=== PATIENT | female | born 1970 | race Caucasian/White ===

== ENCOUNTER 2023-02-16 08:43 | Outpatient (REF) | payer OTHER, SELFPAY ==
--- NOTE | ~2023-02-16 | XR_ITS ---
EXAMINATION: XR PELVIS CLINICAL INFORMATION: Hips pain COMPARISON: None available. TECHNIQUE: AP view of the pelvis. FINDINGS: No fracture. Hip joint spaces are maintained. Alignment is anatomic. There is minimal spurring at the acetabulum and femoral head on the left. Sacroiliac joints and pubic symphysis are normal. No abnormal soft tissue calcifications. XR/XR pelvis 1-2V IMPRESSION: Minor changes of osteoarthritis in the left hip joint
== END 2023-02-16 08:44 | disposition home or self-care (01) ==
LOC: HO.HOSX 08:43
PROVIDERS: Visit Provider Orthopaedic Surgery
DX: M16.12 Unilateral primary osteoarthritis, left hip (principal)
CPT/HCPCS: 72170; 99202

== ENCOUNTER 2023-02-16 09:50 | Outpatient (AMB) | payer OTHER, SELFPAY ==
[2023-02-16 10:09] VITALS: BMI 29.7
--- NOTE | 2023-02-16 10:09 | MHC.OFFVIS ---
Intake Vital Signs 02/16/23 10:09 Height 5 ft 6 in Weight 184 lb BMI 29.7 Handedness Right Intake Visit Reasons: New Pt - left hip pain - No XR Intake Note: Sejal is a 52 year old female who presents today as a new patient with complaints of left hip pain. Patient reports that her left hip has been painful for many years now. She did see an orthopedic surgeon many years ago ho gurmeet that she had a bone spur. She was prescribed PT and had no changes in symptoms. She has pain with external rotation and prolonged sitting. Her pain is felt from the buttock and wraps aroud the outer aspect of the hip to the groin Allergies No Known Allergies Allergy (Verified 02/16/23 10:12) HPI New Pt - left hip pain - No XR HPI Details Sejal is a 52 year old woman who presents with complaints of left hip pain. She complains of pain localized to her groin. She says this has been present for several years and is worse with prolonged sitting activities or climbing in/out of a car. She says her pain worsened in ~2019, and this has affected her leisure activities and her work ability as she cannot sit for too long, and she feels she needs to drag her leg at times when walking. She is frustrated that she is unable to ride her horses due to her pain. Straddling a horse and opening her hips causes her the most pain. She says she can walk comfortably for short periods, ~20 minutes, but she is unable to walk for an hour without developing pain in her groin and her lower back. She walks with a slight limp. She was told she had a bone spur at [facility], and has completed PT in the past, but says this did not improve her pain. She does feel that her PT improved her motion however. 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 She is not working often due to her pain and finds she needs to use Lidocaine patches and NSAIDs for some relief. She is unable to take NSAIDs consistently due to gastric ulcers. [facility] Social History (Updated 02/16/23 @ 10:13 by Antonella Soriano CMA) Patient Tobacco Use Status: Never used Tobacco Current occupational status: employed Current occupation: Stenographer Review of Systems Const All systems reviewed & are unremarkable except as noted in HPI and below Physical Exam Vital Signs: BMI result Body Mass Index 29.7 Const General: no acute distress, alert and awake Orientation/consciousness: patient oriented x3 HEENT Head: Yes normocephalic and Yes atraumatic Eyes EOM: EOMs intact bilaterally Resp Effort & Inspection: normal respiratory effort and able to speak in complete sentences Cardio Jugular venous distension: no JVD Skin General skin exam: turgor normal Rashes: no rashes Neuro General: patient oriented x3 Extrem Other: Left Hip: Left hip with + impingement and + Stinchfield Pain with JUAN CARLOS that localizes to groin Psych Appearance: grossly normal Affect: normal affect Attitude: cooperative Results Reviewed Results Reviewed: I personally reviewed relevant radiographs. Moderate left hip OA & mild right hip OA Assessment & Plan Assessment & Plan (1) Osteoarthritis of left hip: Code(s): M16.12 - Unilateral primary osteoarthritis, left hip Plan: This is a 52 year old woman with moderate-severe left hip OA. She has pain with prolonged sitting, climbing into a car, and riding horses. This affects her ability to work. She feels limited in her ADLs, that her QOL is diminished, and she is frustrated by this. Her pain is localized primarily to the groin. She has completed PT in the past, with limited relief, and takes NSAIDs sparingly due to gastric ulcers, though these do give her some relief. I discussed her diagnosis and treatment options. I recommend a left JANNIE. I discussed the risks, benefits, and alternatives including, but not limited to, the risk of pain, infection, stiffness, need for further surgery as well as potential medical complications such as blood clots, pulmonary embolism and cardiac complications. I discussed the recovery timeline and process as well as the importance of PT. Sejal is a good candidate for this surgery, and she wishes to proceed with this decision. She will speak with Shonda to schedule this procedure. Plan Scribed for Favian Monzon MD by Sylvester Najera, medical accounts receivable specialist, on 02/16/23 at 10:30 AM, EST. Orders: Orders XR pelvis 1-2V 02/16/23 M25.559 - Pain in unspecified hip Coding Level of Care Code New Pt Level 4 (80310) Diagnoses Osteoarthritis of left hip M16.12
== END 2023-02-16 10:57 | disposition home or self-care (01) ==
PROVIDERS: PCP Internal Medicine; Visit Provider Orthopaedic Surgery
DX: M16.12 Unilateral primary osteoarthritis, left hip (principal)
CPT/HCPCS: 99204

== ENCOUNTER 2023-03-23 10:10 | Outpatient (AMB) | payer OTHER, SELFPAY ==
--- NOTE | 2023-03-23 10:12 | A.OFFVIS_ITS ---
Intake Intake Visit Reasons: Preop-LT JANNIE 03/29/23 NE Intake Note: Sejal is a 52 year old female who presents today for a pre op appointment for left JANNIE 03/29/23 NE. Allergies No Known Allergies Allergy (Verified 03/23/23 10:12) HPI Preop-LT JANNIE 03/29/23 NE HPI Details 52-year-old female who presents in the [facility] today for her preoperative history and physical exam prior to a left total hip arthroplasty to be performed on 03/29/[address] Monzon. She expresses concerns for nausea, vomiting, and stomach ulcers that are caused by medication. She confirms having a raised toilet seat. She still needs to pear picker the walker. Patient tested negative for MRSA. Patient tested positive for S. aureus. Patient has no known allergy history. Patient is currently taking, as follows: -Omeprazole 20 mg PO Daily -Vitamin D Patient has a medical history, as follows: -Anxiety -Irritable bowel syndrome -Postoperative nausea and vomiting -Stomach ulcers Patient has a surgical history, as follows, without complications: -History of colonoscopy -History of dilation and curettage Patient has a social history, as follows: -Patient works as a Stenographer. [facility] Medical History (Updated 03/23/23 @ 10:19 by Samanta Hernandez) Anxiety Irritable bowel syndrome Osteoarthritis PONV (postoperative nausea and vomiting) Surgical History (Updated 03/22/23 @ 11:51 by Flores Palacios RN) Hx of colonoscopy Hx of dilation and curettage Social History Household Members: Spouse Housing: House Are you a primary inspector health care facilities to a significant other at home: No Do you presently have visiting nurse or other home services: No Patient Tobacco Use Status: Former Tobacco user Quit Date: 25 years ago Tobacco use type: Cigarette Use of substances other than those prescribed or required for medical reasons: No Current occupational status: employed Current occupation: Stenographer Review of Systems Const All systems reviewed & are unremarkable except as noted in HPI and below Physical Exam Const General: no acute distress, alert and awake Orientation/consciousness: patient oriented x3 HEENT Head: Yes normocephalic and Yes atraumatic Eyes General: appearance normal, both eyes and all related structures EOM: EOMs intact bilaterally Neck Neck: Yes normal visual inspection and Yes no lymphadenopathy Resp Effort & Inspection: normal respiratory effort and able to speak in complete sentences Cardio Jugular venous distension: no JVD Rate: regular rate Peripheral pulses: Peripheral pulses 2+ throughout GI Inspection: Yes normal to inspection Palpation (GI): Soft to palpation Skin General skin exam: turgor normal Rashes: no rashes Neuro General: patient oriented x3 Extrem Other: Left Hip: Skin is clean, dry, and intact. Left hip with + impingement and + Stinchfield Pain with JUAN CARLOS that localizes to groin Psych Appearance: grossly normal Mental Status: mental status grossly normal Affect: normal affect Attitude: cooperative Assessment & Plan Assessment & Plan (1) Osteoarthritis of left hip: Code(s): M16.12 - Unilateral primary osteoarthritis, left hip Qualifiers: Osteoarthritis type: unspecified Qualified Code(s): M16.12 - Unilateral primary osteoarthritis, left hip (2) Gastric ulcer due to nonsteroidal antiinflammatory drug (NSAID) therapy: Code(s): K25.9 - Gastric ulcer, unspecified as acute or chronic, without hemorrhage or perforation; T39.395A - Adverse effect of other nonsteroidal anti-inflammatory drugs [NSAID], initial encounter Plan: Shaun [phone] Plan Ms. Garcia is a 52-year-old female who presents in the office today for her preoperative history and physical exam prior to a left total hip arthroplasty to be performed on 03/29/[address] Monzon. She expresses concerns for nausea, vomiting, and stomach ulcers that are caused by medication. She confirms having a raised toilet seat. She still needs to pear picker the walker. Patient tested negative for MRSA. Patient tested positive for S. aureus. Patient has no known allergy history. Patient is currently taking, as follows: -Omeprazole 20 mg PO Daily -Vitamin D Patient has a medical history, as follows: -Anxiety -Irritable bowel syndrome -Postoperative nausea and vomiting -Stomach ulcers Patient has a surgical history, as follows, without complications: -History of colonoscopy -History of dilation and curettage Patient has a social history, as follows: -Patient works as a Stenographer. I discussed in detail the procedure and what to expect pre and post operatively. We discussed the risks, benefits and alternatives to the surgery as well as the rehabilitation course. The risks; which include, but are not limited to infection, bleeding, nerve injury, ongoing pain, swelling, and stiffness, perioperative risk of injury to bones and soft tissues, and blood clots. I have answered all questions and with their understanding they have consented to move forward with a left total knee arthroplasty to be performed on 03/29/[address] Favian Monzon. Follow up will be at the post operative appointment on 04/20/2022 at 2:15 pm, or sooner if needed. Please call Shaun, her , at [phone] after surgery. Patient has postop nausea and vomiting and a history of gastric ulcers due to NSAID use. Patient Instructions: Scribed for Leonila Segovia PA-C by Samanta Hernandez medical billing coordinator, on 03/23/2023 at 10:12 am, EST. Coding Level of Care Code Global (55911) Diagnoses Osteoarthritis of left hip, unspecified osteoarthritis type M16.12 Osteoarthritis type: unspecified Gastric ulcer due to nonsteroidal antiinflammatory drug (NSAID) therapy K25.9; T39.395A
== END 2023-03-23 10:38 | disposition home or self-care (01) ==
PROVIDERS: PCP Internal Medicine; Visit Provider Physician Assistant
DX: M16.12 Unilateral primary osteoarthritis, left hip (principal); K25.9 Gastric ulcer, unspecified as acute or chronic, without hemorrhage or perforation; T39.395A Adverse effect of other nonsteroidal anti-inflammatory drugs [NSAID], initial encounter
CPT/HCPCS: 99024

== ENCOUNTER → 2023-03-23 10:10 | Outpatient (BNVA) | payer OTHER, SELFPAY | PROVIDERS: PCP Internal Medicine; Visit Provider Physician Assistant | DX: M16.12 Unilateral primary osteoarthritis, left hip (principal); K25.9 Gastric ulcer, unspecified as acute or chronic, without hemorrhage or perforation; T39.395A Adverse effect of other nonsteroidal anti-inflammatory drugs [NSAID], initial encounter | CPT/HCPCS: 99212 ==

== ENCOUNTER 2023-03-28 06:07 | Inpatient (IN) | payer OTHER, SELFPAY ==
[2023-03-22 11:53] VITALS: BP 130/81; PULSE 55; RESP 16; O2SAT 97; BMI 30.5
--- NOTE | 2023-03-22 12:12 | P.CONAN_ITS ---
Documented by User: Camelia Baires NP 03/27/23 08:38 HPI - Anesthesia Eval Consult details Narrative: 52yo F for Left Hip Total Replacement Medically optimized per PCP No recent illness No CP/SOB with walking and strength exercise Otherwise healthy PONV PMFSH Active Problems Active Problems: All Active Problems (Updated 03/22/23 @ 11:51 by Flores Palacios RN) Osteoarthritis of left hip (Acute) Past Medical History Medical History Anxiety Irritable bowel syndrome Osteoarthritis PONV (postoperative nausea and vomiting) Family History Family history of problems with anesthesia: No Surgical History Surgical History Hx of colonoscopy Hx of dilation and curettage History of Problems with Anesthesia: Yes (PONV) Social History Social History Household Members: Spouse Housing: House Are you a primary wound care center consultant to a significant other at home: No Do you presently have visiting nurse or other home services: No Patient Tobacco Use Status: Former Tobacco user Quit Date: 25 years ago Tobacco use type: Cigarette Use of substances other than those prescribed or required for medical reasons: No Have you been hit, kicked, punched, or otherwise hurt by someone within the past year? If so, by whom?: No Are you DNR?: No Advance Directives: No Advance Directives Information Provided: Yes Advance Directives on File: No Recently lost weight without trying: No Nutrition Risks: No Nutritional Risk Patient : No FDLMP: 2017 Poor oral hygiene: No Current occupational status: employed Current occupation: [employer] Allergies Allergy/AdvReac Type Severity Reaction Status Date / Time No Known Allergies Allergy Verified 03/28/23 06:18 Home Medications Medication Instructions Recorded Confirmed Last Taken Type omeprazole 20 mg capsule,delayed 20 mg PO DAILY 03/22/23 03/22/23 03/28/23 History release Exam Height,Weight and Vital Signs: Height 5 ft 6 in Weight 85.6 kg Last Vital Signs Pulse 55 03/22/23 11:53 Resp 16 03/22/23 11:53 BP 130/81 03/22/23 11:53 Pulse Ox 97 03/22/23 11:53 O2 Del Method Room Air 03/22/23 11:53 Airway Mallampati Class: II TM Dist: >3cm Neck ROM: Full Loose/Missing/Broken Teeth: No (1 x crown) Heart: RRR Lungs: CTAB Assessment and Plan Assessment Anesthesia Assessment: Anesthesia Plan Discussed and PAT Visit Final Anesthetic Review Family History of Problems with Anesthesia: No History of Problems with Anesthesia: Yes (PONV) Documented by User: Nani Allan MD 03/28/23 07:26 [facility] Past Medical History Medical History Anxiety Irritable bowel syndrome Osteoarthritis PONV (postoperative nausea and vomiting) Surgical History Surgical History Hx of colonoscopy Hx of dilation and curettage Social History Social History Household Members: Spouse Housing: House Are you a primary wound care center consultant to a significant other at home: No Do you presently have visiting nurse or other home services: No Patient Tobacco Use Status: Former Tobacco user Quit Date: 25 years ago Tobacco use type: Cigarette Use of substances other than those prescribed or required for medical reasons: No Have you been hit, kicked, punched, or otherwise hurt by someone within the past year? If so, by whom?: No Are you DNR?: No Advance Directives: No Advance Directives Information Provided: Yes Advance Directives on File: No Recently lost weight without trying: No Nutrition Risks: No Nutritional Risk Patient : No FDLMP: 2017 Poor oral hygiene: No Current occupational status: employed Current occupation: Stenographer Meds Allergies Allergy/AdvReac Type Severity Reaction Status Date / Time No Known Allergies Allergy Verified 03/28/23 06:18 Home Medications Medication Instructions Recorded Confirmed Last Taken Type omeprazole 20 mg capsule,delayed 20 mg PO DAILY 03/22/23 03/22/23 03/28/23 History release Assessment and Plan Assessment Anesthesia Assessment: Chart Reviewed Final Anesthetic Review NPO: Yes ASA Class: II Final Preanesthetic Review: No Changes in Pt Med Stat, Meds/Allgs Chart Reviewed, Consent Obtained/Reviewed and Anes Risks/Benef Reviewed Patient Risk: Low Procedure Risk: Intermediate Anesthetic Plan Anesthetic Plan: GA Disposition: Standard PACU
[2023-03-22 14:30] LABS: MRSA Nasal PCR NEGATIVE (Negative); SA Nasal PCR POSITIVE (Negative)
[2023-03-28] VITALS (14 sets, daily range): BP systolic 99–139; BP diastolic 47–80; PULSE 48–68; RESP 10–17; TEMP 36.1–36.8; O2SAT 96–100; BMI 30.1
--- NOTE | ~2023-03-28 | XR_ITS ---
EXAMINATION: XR PELVIS CLINICAL INFORMATION: Left total hip arthroplasty COMPARISON: Pelvis 02/16/2023 TECHNIQUE: 3 AP supine view of the pelvis. FINDINGS: No fracture. There is mild narrowing of the right hip joint. Interval left total hip arthroplasty. There is no evidence of periprosthetic lucency to suggest loosening or infection. Hardware is intact. Sacroiliac joints and pubic symphysis are normal. No abnormal soft tissue calcifications. XR/XR pelvis 1-2V IMPRESSION: Satisfactory appearance of left total hip arthroplasty.
[2023-03-28] MEDS: Scopolamine 1.5 MG PATCH.TD.3 TRANSDERMA (06:37)
[2023-03-28] MEDS: Lactated Ringers 1,000 ML 100 ML IVCONT ×3 (06:55→23:18)
[2023-03-28 07:08] LABS: Hemoglobin 13.4 g/dl (12.0-16.0)
[2023-03-28 07:21] LABS: Anion Gap 12 (12-20); Blood Urea Nitrogen 15 mg/dL (9-16); Calcium 9.2 mg/dL (8.4-10.2); Carbon Dioxide 25 mmol/L (22-29); Chloride 109 mmol/L (96-108); Creatinine Clr Calc Pharmacy 90.3; Estimated Glomerular Filt Rate > 60; Glucose Fasting 98 mg/dL (60-99); Potassium 3.7 mmol/L (3.3-5.1); Sodium 142 mmol/L (135-145)
--- NOTE | 2023-03-28 07:30 | MHC.SHP ---
Pre-Procedural Eval Section A Date of Service: 03/28/23 The patient is an INPATIENT: No Changes since office visit: No Cold of Flu in the past 2 weeks, No New Medical Problems, No Changes in Medication and No Patient answered all questions The History & Physical has been completed within 30 days and I have reviewed it.: Yes Section B Chief Complaint: LTHA Allergies: Allergies Allergy/AdvReac Type Severity Reaction Status Date / Time No Known Allergies Allergy Verified 03/28/23 06:18 Plan I have reviewed the history and physical and performed a pertinent physical examination on my patient. No changes have occurred unless specified. Time Spent With Patient Time: Total time managing care of this patient today ____ minutes.
--- NOTE | 2023-03-28 08:54 | PHA.MEDREC ---
Pharmacy Consult ? Medication Reconciliation Pharmacy has reviewed the medication reconciliation.
--- NOTE | 2023-03-28 09:30 | PM.OP ---
Brief Operative Note Date of Service: 03/28/23 Pre-op diagnosis: Left hip OA Post-op diagnosis: same Procedure: Left JANNIE Implants: [place] Trident2 50/10deg lip [place] Accolade@ #6 132 deg with +0/32 ceramic Surgeon: Favian Monzon MD Anesthesia: GETA, regional and local Was an Orthotic Technician used for this Procedure?: Yes Orthotic Technician: Lisa Abrams Estimated blood loss (mL): 150 IV fluids (mL): 1,000 Pathology: other Condition: stable Disposition: PACU
--- NOTE | 2023-03-28 09:34 | W.PM.OPN ---
Operative Note Operative Note Date of Service: 03/28/23 Narrative: Date of Service: 03/28/23 Pre-op diagnosis: Left hip OA Post-op diagnosis: same Procedure: Left JANNIE Implants: [place] Trident2 50/10deg lip [place] Accolade@ #6 132 deg with +0/32 ceramic Surgeon: Favian Monzon MD Anesthesia: GETA, regional and local Was an Gasoline Catalyst Operator used for this Procedure?: Yes Gasoline Catalyst Operator: Lisa Abrams Estimated blood loss (mL): 150 IV fluids (mL): 1,000 Pathology: other Condition: stable Disposition: PACU Procedure in detail: Patient was brought into the operating room and placed in the right lateral decubitus position. All bony prominences were well padded and the limb was prepped and draped in standard sterile fashion. A time-out was called to identify proper site procedure proper surgeon IV antibiotics and 1 g of transaxemic acid were administered. I began by making a curvilinear incision over the posterolateral aspect of the greater trochanter. Dissection was taken down to the tensor fascia which was incised in line with the incision and a Charnley retractor was placed. Cautery was used to maintain hemostasis. The hip was internally rotated and the external rotators were identified. The vessels were cauterized and a full-thickness capsular/external rotator layer was developed starting just proximal to the piriformis. This layer was tagged and a dull Hohmann retractor was placed underneath the neck in the hip was dislocated. A neck cut was made 1 cm proximal to the lesser trochanter and the head and neck were removed and measured 50mm on the back table. I then removed the labrum and cauterized the fovea. I started with a 44 reamer and medialized to the inner table. I sequentially reamed up to a size 50 and impacted a 50mm cup at 45 degrees of inclination and 25 degrees of version. I then placed a 10 deg posterior lipped liner and turned my attention to the femur. I identified the piriformis insertion and used this as a starting point for my argenis cutter. The medius tendon was protected with a Hibs retractor. A Charnley awl was inserted in the canal and a curved curette used to remove the lateral bone. I irrigated copiously. I then sequentially broached in the patient's natural version to a size 5 and placed my trial implants. I used a #6/132/+0 based on my pre-operative template. Using a trail head I took the hip through range of motion. I was satisfied with the stability. I removed all instrumentation and copiously irrigated. I placed my final femoral implant and again took the hip through range of motion and was satisfied with the stability and length. The final +0 implant was impacted in place and the hip reduced. I then irrigated copiously and placed 1 g of local transaxemic acid. I performed a capsular closure with 2.0 fiberwire, Manohar's fascia with 0 Vicryl, subcuticular with 2-0 Vicryl and the skin with arelis. Patient was placed into a sterile dressing. Patient was extubated brought to the recovery room in stable condition. There were no known complications.
[2023-03-28] MEDS: HYDROmorphone HCl 0.5 MG/0.5 ML SYRINGE 0.25 MG IVPUSH (10:11)
[2023-03-28] MEDS: Acetaminophen 325 MG TABLET 650 MG PO (13:32)
[2023-03-28] MEDS: oxyCODONE HCl Immed Release 5 MG TABLET PO (13:33)
[2023-03-28] MEDS: ceFAZolin Sodium/Dextrose,Iso 2 GM/50 ML PIGGYBACK IV (13:34)
[2023-03-28] MEDS: ondansetron HCL 4 MG/2 ML VIAL IVPUSH (19:18)
[2023-03-28] MEDS: oxyCODONE HCl ER 10 MG TAB.ER.12H PO (20:21)
[2023-03-28] MEDS: Celecoxib 200 MG CAPSULE PO (20:22)
[2023-03-28] MEDS: Sennosides 8.6 MG TABLET 17.2 MG PO (20:25)
[2023-03-29 03:47] VITALS: BP 128/65; PULSE 61; RESP 16; TEMP 36.5; O2SAT 96
[2023-03-29 06:23] LABS: MANUAL DIFF FLAG NO
[2023-03-29] MEDS: oxyCODONE HCl Immed Release 5 MG TABLET PO ×2 (06:38→15:47)
[2023-03-29] MEDS: ondansetron HCL 4 MG/2 ML VIAL IVPUSH ×2 (06:42→15:47)
[2023-03-29 06:51] LABS: Basophils Percent Auto 0.1 % (0-2); Eosinophils Percent Auto 0.1 % (0-4); Hematocrit 32.9 % (37.0-47.0); Hemoglobin 10.9 g/dl (12.0-16.0); Imm Gran Abs Auto 0.03 X10*3/uL (0.00-0.03); Imm Gran Pct Auto 0.4 % (0.0-0.4); Lymphocytes Absolute Auto 2.1 X10*3/uL (1.2-4.9); Lymphocytes Percent Auto 25.8 % (20-40); Mean Corpuscular HGB Conc 33.1 g/dl (31.0-35.0); Mean Corpuscular Hemoglobin 30.4 pg (27.0-33.0); Mean Corpuscular Volume 91.6 fL (80.0-98.0); Mean Platelet Volume 11.3 fL (9.4-12.3); Monocytes Absolute Auto 0.7 X10*3/uL (0.1-1.2); Monocytes Percent Auto 9.2 % (2-11); Neutrophils Absolute Auto 5.2 x10*3/uL (2.0-8.3); Neutrophils Percent Auto 64.4 % (45-73); Platelet Count 126 X10*3/uL (160-400); Red Blood Count 3.59 X10*6/uL (4.20-5.50); Red Cell Distribution Width 12.1 % (11.0-16.0)
[2023-03-29 06:53] LABS: Anion Gap 11 (12-20); Blood Urea Nitrogen 12 mg/dL (9-16); Calcium 8.8 mg/dL (8.4-10.2); Carbon Dioxide 26 mmol/L (22-29); Chloride 104 mmol/L (96-108); Creatinine Clr Calc Pharmacy 103.5; Estimated Glomerular Filt Rate > 60; Glucose Fasting 114 mg/dL (60-99); Potassium 3.9 mmol/L (3.3-5.1); Sodium 137 mmol/L (135-145)
[2023-03-29 07:20] VITALS: BP 131/61; PULSE 65; RESP 16; TEMP 36; O2SAT 97
[2023-03-29 08:10] VITALS: BP 131/61; PULSE 65; O2SAT 97
--- NOTE | 2023-03-29 08:12 | PM.PNORT ---
Subjective Subjective Date of Service: 03/29/23 Interval history: POD1 s/p LTHA Patient is resting in bed comfortably No overnight events Pain is managed No additional complaints Physical Exam Vital Signs: Vital Signs: Last Vital Signs Temp 96.8 F 03/29/23 07:20 Pulse 65 03/29/23 07:20 Resp 16 03/29/23 07:20 BP 131/61 03/29/23 07:20 Pulse Ox 97 03/29/23 07:20 O2 Del Method Room Air 03/29/23 07:20 O2 Flow Rate 2 03/28/23 10:42 BMI result Body Mass Index 30.1 Const: General: cooperative, healthy appearing and no acute distress Resp: Effort & Inspection: normal respiratory effort and able to speak in complete sentences Cardio: Rate: regular rate Peripheral pulses: Peripheral pulses 2+ throughout GI: Palpation (GI): Soft to palpation Skin: Lesions: no lesions Rashes: no rashes Extrem: Other: left hip dressing is c/d/i. Able to dorsi/plantar flex. Calf is supple and nontender. Sensation intact. Pedal pulse intact. Procedures Date of Service Date of Service: 03/29/23 Progress Note: A&P Assessment and plan (1) S/P total right hip arthroplasty: Status: Acute Plan Continue pain mgmnt Begin Lovenox for dvt ppx begin PT for LTHA Dispo planning-Pending PT eval, pain mgmnt Patient needs ongoing hospitalization for pain management and physical therapy for safe discharge Time Spent With Patient Time: Total time managing care of this patient today ____ minutes. Quality Stroke Does the patient have a stroke diagnosis?: No VTE Prior VTE?: No VTE Risk Level:: Medical - moderate - high VTE Device Contraindication: N/A - Device Ordered VTE Drug Contraindication: N/A - Med Ordered
[2023-03-29] MEDS: Celecoxib 200 MG CAPSULE PO ×2 (08:39→18:59)
[2023-03-29] MEDS: oxyCODONE HCl ER 10 MG TAB.ER.12H PO ×2 (08:39→18:58)
[2023-03-29] MEDS: Enoxaparin Sodium 40 MG/0.4 ML SYRINGE SUBCUT (08:40)
[2023-03-29] MEDS: Lactated Ringers 1,000 ML 100 ML IVCONT (08:43)
[2023-03-29] MEDS: Sennosides 8.6 MG TABLET 17.2 MG PO (08:43)
[2023-03-29] MEDS: 0.9 % Sodium Chloride Flush 3 ML SYRINGE IVFLUSH ×3 (09:48→22:57)
--- NOTE | 2023-03-29 12:21 | HO.POSTANES ---
Post Anesthesia Evaluation Post Anesthesia Evaluation Date of Service: 03/29/23 Vital Signs: Vital Signs Temp Pulse Resp BP Pulse Ox O2 Del Method 03/29/23 08:10 65 131/61 97 03/29/23 07:20 96.8 F 65 16 131/61 97 Room Air 03/29/23 03:47 97.7 F 61 16 128/65 96 Room Air Anesthesia: General Mental Status: Awake Pain Control: Satisfactory Nausea/Vomiting: None Hydration: Adequate Anesthesia-Related Issues: No Anes. Related Issues
[2023-03-29 14:06] VITALS: BP 131/61; PULSE 65; O2SAT 97
[2023-03-29 15:14] VITALS: BP 125/57; PULSE 62; RESP 18; TEMP 37.1; O2SAT 99
--- NOTE | 2023-03-29 15:18 | MHC.CM.PN ---
Female S/P LTHA She lives with spouse. She is independent with all functional mobility @ baseline. She declined the offer to document a HCP. [facility] was referred by Ortho. DP home [facility] Spouse will provide transportation home.
[2023-03-29] MEDS: Acetaminophen 325 MG TABLET 650 MG PO (15:47)
[2023-03-29 19:58] VITALS: BP 139/70; PULSE 72; RESP 16; TEMP 37.2; O2SAT 98
[2023-03-30] MEDS: oxyCODONE HCl Immed Release 5 MG TABLET PO ×2 (03:02→07:31)
[2023-03-30] MEDS: Ondansetron ODT 4 MG TAB.RAPDIS TRANSLINGU (03:02)
[2023-03-30 03:09] VITALS: BP 167/74; PULSE 74; RESP 16; TEMP 36.1; O2SAT 97
[2023-03-30 05:32] LABS: Basophils Percent Auto 0.5 % (0-2); Imm Gran Abs Auto 0.02 X10*3/uL (0.00-0.03); Imm Gran Pct Auto 0.3 % (0.0-0.4); PLT CLUMP 1; Red Blood Count 3.49 X10*6/uL (4.20-5.50); SCAN SMEAR FLAG 1
[2023-03-30 05:34] LABS: Eosinophils Absolute Auto 0.1 X10*3/uL (0.0-0.4); Eosinophils Percent Auto 1.3 % (0-4); Hematocrit 32.5 % (37.0-47.0); Hemoglobin 10.7 g/dl (12.0-16.0); Lymphocytes Absolute Auto 1.7 X10*3/uL (1.2-4.9); Lymphocytes Percent Auto 28.5 % (20-40); Mean Corpuscular HGB Conc 32.9 g/dl (31.0-35.0); Mean Corpuscular Hemoglobin 30.7 pg (27.0-33.0); Mean Corpuscular Volume 93.1 fL (80.0-98.0); Mean Platelet Volume 11.4 fL (9.4-12.3); Monocytes Absolute Auto 0.5 X10*3/uL (0.1-1.2); Monocytes Percent Auto 7.9 % (2-11); Neutrophils Absolute Auto 3.7 x10*3/uL (2.0-8.3); Neutrophils Percent Auto 61.5 % (45-73); Red Cell Distribution Width 12.7 % (11.0-16.0)
[2023-03-30 05:35] LABS: MANUAL DIFF FLAG NO; Platelet Count 114 X10*3/uL (160-400); White Blood Count 6.2 X10*3/uL (4.8-10.8)
[2023-03-30 06:02] LABS: Anion Gap 10 (12-20); Blood Urea Nitrogen 10 mg/dL (9-16); Calcium 8.8 mg/dL (8.4-10.2); Carbon Dioxide 29 mmol/L (22-29); Chloride 106 mmol/L (96-108); Creatinine Clr Calc Pharmacy 100.6; Estimated Glomerular Filt Rate > 60; Glucose Fasting 105 mg/dL (60-99); Potassium 4.3 mmol/L (3.3-5.1); Sodium 141 mmol/L (135-145)
[2023-03-30 08:00] VITALS: BP 131/67; PULSE 77; RESP 18; TEMP 36.9; O2SAT 96
[2023-03-30 08:06] VITALS: BP 167/74; PULSE 74; O2SAT 97
[2023-03-30] MEDS: Celecoxib 200 MG CAPSULE PO (08:14)
[2023-03-30] MEDS: oxyCODONE HCl ER 10 MG TAB.ER.12H PO (08:14)
[2023-03-30] MEDS: 0.9 % Sodium Chloride Flush 3 ML SYRINGE IVFLUSH (08:14)
[2023-03-30] MEDS: Enoxaparin Sodium 40 MG/0.4 ML SYRINGE SUBCUT (08:14)
--- NOTE | 2023-03-30 08:26 | P.DS_ITS ---
DS: Providers Provider Date of Service: 03/30/23 Date of admission: 03/28/23 06:07 Primary care physician: Basil Christianson III, MD DS: Diagnosis Discharge Diagnosis (1) S/P total right hip arthroplasty: Status: Acute DS: Summary Hospital Course Hospital Course: The patient underwent a successful left total hip arthroplasty on 03/28/23, was transferred to PACU and then to the floor to recover. During their stay, their vitals were stable, afebrile at . Labs were unremarkable, H/H 10.7/32.5 . POD 1 she was started on lovenox 40mg sub q once a day for DVT ppx, they also received Physical Therapy services twice a day. Physical therapy should include gait training, core and lumbar strength, glute strength. Posterior precautions intact. WBAT. Prior to discharge, her dressing was changed, incision clean dry and intact, new Aquacel dressing applied. The Aquacel dressing should remain intact and dry at all times. Any concerns with the dressing, please contact orthopedic office. No showering. The plan is to be discharged home with VNA services Time Attestation Discharge coordination time: Less than 30 minutes Quality: Safe Use of Opioids Does Pt have an Active Cancer Diagnosis on the Problem List?: No Quality: Stroke Does the patient have a stroke diagnosis?: No Physical Exam Vital Signs: Vital Signs: Last Vital Signs Temp 98.5 F 03/30/23 08:00 Pulse 74 03/30/23 08:06 Resp 18 03/30/23 08:00 BP 167/74 H 03/30/23 08:06 Pulse Ox 97 03/30/23 08:06 O2 Del Method Room Air 03/30/23 08:00 O2 Flow Rate 2 03/28/23 10:42 BMI result Body Mass Index 30.1 Const: General: cooperative, healthy appearing and no acute distress Resp: Effort & Inspection: normal respiratory effort and able to speak in complete sentences Cardio: Rate: regular rate Peripheral pulses: Peripheral pulses 2+ throughout GI: Palpation (GI): Soft to palpation Skin: Lesions: no lesions Rashes: no rashes Extrem: Other: left hip dressing is c/d/i. Able to dorsi/plantar flex. Calf is supple and nontender. Sensation intact. Pedal pulse intact. DS: Data Data Completed and Pending Pending studies at discharge: Pending at discharge 03/28/23 08:54 Surgical [PTH] Routine Labs on day of discharge: Laboratory Results - last 24 hr 03/30/23 05:14 WBC 6.2 RBC 3.49 L Hgb 10.7 L Hct 32.5 L MCV 93.1 MCH 30.7 MCHC 32.9 RDW 12.7 Plt Count 114 L MPV 11.4 Immature Gran % (Auto) 0.3 Neut % (Auto) 61.5 Lymph % (Auto) 28.5 [place] % (Auto) 7.9 Eos % (Auto) 1.3 Baso % (Auto) 0.5 Lymph # (Auto) 1.7 [place] # (Auto) 0.5 Eos # (Auto) 0.1 Baso # (Auto) 0.0 Abs Immat Gran (auto) 0.02 Absolute Neuts (auto) 3.7 Absolute Nucleated RBC 0.000 Nucleated RBC % (auto) 0.0 Sodium 141 Potassium 4.3 Chloride 106 Carbon Dioxide 29 Anion Gap 10 L BUN 10 Creatinine 0.70 Estim Creat Clear Calc 100.6 Estimated GFR > 60 Fasting Glucose 105 H Calcium 8.8 Discharge Plan Discharge Anticipated Discharge Date/Time: 03/30/23 10:00 Patient Disposition: Home Health Service Discharge Diagnosis: lt hailee Referrals: Basil Christianson III, MD [Primary Care Provider] - 1 Week Discharge Medications: New acetaminophen 325 mg Tablet 650 mg PO Q6H PRN (Reason: Pain, Mild (Pain Scale 1-3)) 30 Days Qty: 240 0RF enoxaparin 40 mg/0.4 mL Syringe 40 mg subcut Q24H 42 Days Qty: 16.8 0RF celecoxib 200 mg Capsule 200 mg PO BID 30 Days Qty: 60 0RF oxycodone 5 mg Tablet 5 mg PO Q4H PRN (Reason: Pain, Moderate(Pain Scale 4-6)) 7 Days Qty: 42 0RF Rx Instructions: Partial Fill upon patient request. Continued omeprazole 20 mg capsule,delayed release(DR/EC) 20 mg PO DAILY Discharge Orders: Discharge Order (Routine); Ordered 03/30/23 Ordered By: Lisa Abrams Diet: Regular diet Activity on Discharge: Use cane or walker Stand Alone Forms: Patient Portal Discharge page Care Plan Goals: Restore function of joint Health Concerns: none Plan of Treatment: Physical Therapy Pain management DVT prophylaxis Assessment: * Physical Therapy for Total hip arthroplasty: wbat, posterior precautions, gait training, ROM, strength * Limit stair climbing * No showering, no tub bath-keep dressing clean, dry and intact * No driving x6 weeks * Continue lovenox once day x 6 weeks * Follow up with [facility] Orthopedics in 2 weeks:
--- NOTE | 2023-03-30 10:18 | MHC.CM.PN ---
PT WILL DC HOME TODAY WITH [facility] SPOUSE TO TRANSPORT
--- NOTE | 2023-03-30 10:44 | P.F2F_ITS ---
Service Date Service Date: 03/30/23 Encounter Date of encounter: 03/30/23 Reasons for Services Signs and symptoms assessed: Weakness, poor balance, poor gait mechanics Reason for physical therapy: home safety and mobility, therapeutic exercises, restore joint function, gait/transfer training, ADL training and energy conservation Reason for occupational therapy: home safety and mobility, therapeutic exercises, restore joint function, gait/transfer training, ADL training and energy conservation Homebound: Leaving the home is medically contraindicated at this time without the asist of a device and/or another person due th the listed conditions above and below. Reason homebound: unsteady gait / fall risk, pain with ambulation, poor balance / fall risk and unable to drive Homebound supporting statement: Pt. is considered home bound due to recent surgery. Unable to drive, poor balance, poor gait mechanics. Certification: Based on the above findings, I certify that this patient is confined to the home and needs intermittent senior living care, physical therapy and/or speech therapy, or continues to need occupational therapy. The patient is under my care, and I have initiated the establishment of the plan of care. The patient will be followed by a physician who will periodically review the plan of care. Time Spent With Patient Time: Total time managing care of this patient today ____ minutes.
== END 2023-03-30 10:27 | disposition home health service (06) | DRG 324 ==
LOC: HO.SSSA 06:11 → HO.S3 10:44
PROVIDERS: Nurse Practitioner; Physician Assistant; Admitting Provider Orthopaedic Surgery; PCP Internal Medicine; Visit Provider Orthopaedic Surgery
PROC: 0SRB03A Replacement of Left Hip Joint with Ceramic Synthetic Substitute, Uncemented, Open Approach (ICD-10-PCS; CPT 27130; principal; 2023-03-28 07:30)
DX: M16.12 Unilateral primary osteoarthritis, left hip (principal); Z87.891 Personal history of nicotine dependence; Z79.899 Other long term (current) drug therapy
CPT/HCPCS: 36415; 72170; 80048; 85014; 85018; 85025; 86850; 86900; 86901; 87640; 87641; 88304; 88311; 97110; 97116; 97162; 97166; 97530; 99024; C1776; J0131; J0690; J1100; J1170; J1650; J2250; J2405; J2704; J2795; J3010; J7120

== ENCOUNTER → 2023-03-28 06:07 | Outpatient (BNV) | payer OTHER, SELFPAY | PROVIDERS: Admitting Provider Orthopaedic Surgery; PCP Internal Medicine; Visit Provider Orthopaedic Surgery | DX: Z96.641 Presence of right artificial hip joint (principal) | CPT/HCPCS: 27130; 99024 ==

== ENCOUNTER 2023-04-13 11:28 | Outpatient (AMB) | payer OTHER, SELFPAY ==
--- NOTE | 2023-04-13 11:33 | A.OFFVIS_ITS ---
Intake Intake Visit Reasons: PO-LT JANNIE 03/28/23 NE Intake Note: Sejal 52 yr old female presents today for her post op visit for her left JANNIE from 03/28/[address] Monzon. Patient reports she is doing well however she is having a little discomfort possible due to the arelis. Also states she has discontinued her lovenox injections due to burning sensation when administering medication and is now taking aspirin. Allergies No Known Allergies Allergy (Verified 04/13/23 11:41) HPI PO-LT JANNIE 03/28/23 NE HPI Details 52-year-old female who returns to the [facility] today for post-op left JANNIE, 03/28/[address] Monzon. She states she has mild discomfort possibly due to the arelis but is doing well otherwise. She also reports she had discontinued taking Lovenox injection due to a burning sensation upon administering the medication and is currently taking aspirin. She has no other concerns today. [facility] Medical History Anxiety Irritable bowel syndrome Osteoarthritis PONV (postoperative nausea and vomiting) Surgical History Hx of colonoscopy Hx of dilation and curettage Social History Household Members: Spouse Housing: House Are you a primary ostomy care nurse to a significant other at home: No Do you presently have visiting nurse or other home services: No Comment: COUNTS CORRECT Patient Tobacco Use Status: Former Tobacco user Quit Date: 25 years ago Tobacco use type: Cigarette service: No Current occupational status: employed Current occupation: Stenographer Review of Systems Const All systems reviewed & are unremarkable except as noted in HPI and below Physical Exam Extrem Other: Left hip: Incision clean, dry and intact. No erythema or drainage. No pain with ROM or hip flexion. NVI. Assessment & Plan Assessment & Plan (1) S/P total right hip arthroplasty: Code(s): Z96.641 - Presence of right artificial hip joint Plan [place] removed, steri strips applied. She will begin to transition to Outpatient PT to continue working on Gait training, ROM and quad strength. No driving for another 4 weeks. She will require ppx abx for dental procedures. She will f/u in 4 weeks, sooner if needed. Orders: Orders PT Evaluation and Treatment Today Z96.642 - Presence of left artificial hip joint Medications: New aspirin 325 mg PO BID 56 tabs 0RF 4 weeks Patient Instructions: Scribed for Lisa Abrams PA-C, by Eulogio Millard medical librarian, on 04/13/2023 at 11:30 AM EST. ILisa PA-C, have personally reviewed and agree with the information entered by the scribe. Coding Level of Care Code Global (38751) Diagnoses S/P total right hip arthroplasty Z96.641
== END 2023-04-13 12:10 | disposition home or self-care (01) ==
PROVIDERS: PCP Internal Medicine; Visit Provider Physician Assistant
DX: Z96.641 Presence of right artificial hip joint (principal)
CPT/HCPCS: 99024

== ENCOUNTER → 2023-04-13 11:28 | Outpatient (BNVA) | payer OTHER, SELFPAY | PROVIDERS: PCP Internal Medicine; Visit Provider Physician Assistant | DX: Z47.1 Aftercare following joint replacement surgery (principal); Z96.641 Presence of right artificial hip joint | CPT/HCPCS: 99212 ==

== ENCOUNTER 2023-05-11 13:15 | Outpatient (AMB) | payer OTHER, SELFPAY ==
--- NOTE | 2023-05-11 13:20 | MHC.OFFVIS ---
Intake Intake Visit Reasons: P.O- lt hailee 03/28/23 NE Intake Note: Sejal is a 52 year old female who presents today for a post operative visit s/p left HAILEE from 03/28/23. Patient reports that she is doing well, with mild pain but feels that this mostly soft tissue. She is working with physical therapy, which is going well. Allergies No Known Allergies Allergy (Verified 04/13/23 11:41) HPI P.O- lt hailee 03/28/23 NE HPI Details Sejal is a 52 year old woman who presents ~6 weeks S/P left HAILEE. She says she is doing well, with some mild pain, but this is tolerable and she has no other complaints. [facility] Medical History Anxiety Irritable bowel syndrome Osteoarthritis PONV (postoperative nausea and vomiting) Surgical History Hx of colonoscopy Hx of dilation and curettage Social History Household Members: Spouse Housing: House Are you a primary daycare provider to a significant other at home: No Do you presently have visiting nurse or other home services: No Comment: COUNTS CORRECT Patient Tobacco Use Status: Former Tobacco user Quit Date: 25 years ago Tobacco use type: Cigarette service: No Current occupational status: employed Current occupation: Stenographer Review of Systems Const All systems reviewed & are unremarkable except as noted in HPI and below Physical Exam Const General: no acute distress, alert and awake Orientation/consciousness: patient oriented x3 HEENT Head: Yes normocephalic and Yes atraumatic Eyes EOM: EOMs intact bilaterally Resp Effort & Inspection: normal respiratory effort and able to speak in complete sentences Cardio Jugular venous distension: no JVD Skin General skin exam: turgor normal Rashes: no rashes Neuro General: patient oriented x3 Extrem Other: Trendelenberg gait No pain with hip ROM Psych Appearance: grossly normal Affect: normal affect Attitude: cooperative Assessment & Plan Assessment & Plan (1) History of total left hip replacement: Code(s): Z96.642 - Presence of left artificial hip joint Plan Prepared for Favian Monzon MD by Sylvester Najera medical housekeeper, on 05/11/23 at 1:26 PM, EST. Coding Level of Care Code Global (95938) Diagnoses History of total left hip replacement Z96.642
== END 2023-05-11 14:10 | disposition home or self-care (01) ==
PROVIDERS: PCP Internal Medicine; Visit Provider Orthopaedic Surgery
DX: Z96.642 Presence of left artificial hip joint (principal)
CPT/HCPCS: 99024

== ENCOUNTER → 2023-05-11 13:15 | Outpatient (BNVA) | payer OTHER, SELFPAY | PROVIDERS: PCP Internal Medicine; Visit Provider Orthopaedic Surgery | DX: Z47.1 Aftercare following joint replacement surgery (principal); Z96.642 Presence of left artificial hip joint | CPT/HCPCS: 99212 ==

== ENCOUNTER 2023-06-22 09:25 | Outpatient (REF) | payer OTHER, SELFPAY ==
--- NOTE | ~2023-06-22 | XR_ITS ---
EXAMINATION: XR PELVIS CLINICAL INFORMATION: Pain in unspecified hip. COMPARISON: 03/28/2023 pelvis. TECHNIQUE: 2 AP views of the pelvis. FINDINGS: Redemonstration of left hip total arthroplasty which appears intact and stable in alignment. Mild degenerative changes with narrowing in the right hip joint. Moderate degenerative changes in the bilateral sacroiliac joints. Degenerative changes in the imaged lower lumbar spine. XR/XR pelvis 1-2V IMPRESSION: 1. Left hip total arthroplasty appears intact and stable in alignment. 2. Mild degenerative changes in the right hip joint. 3. Moderate degenerative changes bilateral sacroiliac joints.
== END 2023-06-22 09:26 | disposition home or self-care (01) ==
LOC: HO.HOSX 09:25
PROVIDERS: Visit Provider Orthopaedic Surgery
DX: M25.552 Pain in left hip (principal); Z96.642 Presence of left artificial hip joint
CPT/HCPCS: 72170; 99212

== ENCOUNTER 2023-06-22 12:02 | Outpatient (AMB) | payer OTHER, SELFPAY ==
--- NOTE | 2023-06-22 12:09 | A.OFFVIS_ITS ---
Intake Intake Visit Reasons: PO - Left JANNIE 03/28/23 NE Allergies No Known Allergies Allergy (Verified 04/13/23 11:41) HPI PO - Left JANNIE 03/28/23 NE HPI Details Sejal is a 52 year old female who presents today for a post operative visit s/p left JANNIE from 03/28/23. Patient reports that she is doing well, she is having some tightness in the hip and left knee. She feels this pain all the time. She is worried about not being able to participate in activities she enjoys such as yoga and horseback riding PFSH Medical History Anxiety Irritable bowel syndrome Osteoarthritis PONV (postoperative nausea and vomiting) Surgical History Hx of colonoscopy Hx of dilation and curettage Social History Household Members: Spouse Housing: House Are you a primary medical care evaluation specialist to a significant other at home: No Do you presently have visiting nurse or other home services: No Comment: COUNTS CORRECT Patient Tobacco Use Status: Former Tobacco user Quit Date: 25 years ago Tobacco use type: Cigarette service: No Current occupational status: employed Current occupation: Stenographer Physical Exam Extrem Other: No pain with hip range of motion Internal rotation of approximately 15 degrees while flexed External rotation approximately 25 degrees while flexed Trendelenburg gait Results Reviewed Results Reviewed: I personally reviewed relevant radiographs. Left JANNIE in expected post operative position with no hardware complications or evidence of loosening Assessment & Plan Assessment & Plan (1) S/P total right hip arthroplasty: Code(s): Z96.641 - Presence of right artificial hip joint Plan: Status post left hip replacement. Objectively speaking she is doing well but she still has some anxiety and discomfort and some tightness. I reviewed her status with our physical therapist and we will change some of her physical therapy approaches and I will see her back in 6-8 weeks. Orders: Orders XR pelvis 1-2V Today M25.559 - Pain in unspecified hip Coding Level of Care Code Global (79566) Diagnoses S/P total right hip arthroplasty Z96.641
== END 2023-06-22 14:12 | disposition home or self-care (01) ==
PROVIDERS: PCP Internal Medicine; Visit Provider Orthopaedic Surgery
DX: Z96.641 Presence of right artificial hip joint (principal)
CPT/HCPCS: 99024

== ENCOUNTER 2023-07-07 08:00 | Outpatient (RCR) | payer OTHER, SELFPAY ==
--- NOTE | 2023-05-24 13:45 | MHC.PT.EP ---
[facility] [place] Office [place] Office [place] Office [address] Irwin Uribe [address] [phone] F: [phone] F: [phone] F: [phone] F: [phone] Physical Therapy Plan of Care Date of Evaluation: 05/24/23 Date of Surgery: 03/28/23 Diagnosis: THR L Assessment: Pt IS 52 YO F S/P L THR BY DR DUNNE ON 03/28/23 (8 WKS 1 DAY PO TODAY), [facility] X 2 NIGHTS, HOME PT X 2 SESSIONS, OUTPt PT (NOT [facility]) BUT Pt FELT SOME THERAPIST DID NOT ENOUGH, SOME TOO MUCH (AGRESSIVE STM, L LE DISTRACTION). PRESENTS TODAY WITH SLIGHT LIMP WITH GT (NO AD), LIMITED L HIP STRENGTH (DANIELE ABD AND ER)WITH TIGHT HIP FLEXOR/QUAD. Pt REPORTS NOT ALOT OF PAIN AT THIS POINT, BUT WHEN SHE IS SORE, IT IS TYPICALLY IN HER LB. Pt HAS STARTED BACK TO GYM/POOL WITH ULTIMATE GOAL TO RETURN TO HORSE BACK RIDING. Pt WORKS STENOGRAPHER (SITTING). GOOD PT CANDIDATE TO ADDRESS THESE ISSUES Frequency and Duration: The patient will be seen 2X/WK X 2 WKS THEN 1X/WK X 4 WKS Short Term Goals: 1.INCREASED AWARENESS HIP AND BACK CARE 2.IMPROVED GT PATTERN NOTED/REPORTED 3. Pt TO REPORT LESS FEELING OF PELVIC ASYMM Mcc Goals: 1. DECREASED HIP/LB PAIN WITH ADLS 2. I HEP WITH DC EX PLAN 3. Pt ABLE TO RIDE HORSE IF RECOMMENDED BY ORTHO (INIT REC 12 WKS PO) 4. INCREASED L HIP STRENGTH FOR ABD/ER X 1/2 MM GRADE Treatment Plan: Modalities to reduce pain, spasms and effusion. Manual therapy to restore motion and function. Therapeutic exercise to improve strength and flexibility. Neuromuscular re-education for posture and balance. Therapeutic activities to return to functional activities of daily living. Electronically signed by: PRATEEK ELKINS PT Please sign and return to therapist. Thank you for your referral.
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
== END 2023-08-11 11:29 | disposition home or self-care (01) ==
LOC: HO.PT 08:00
PROVIDERS: PCP Internal Medicine; Visit Provider Physician Assistant
DX: Z96.642 Presence of left artificial hip joint (principal)
CPT/HCPCS: 97110; 97140; 97161; 97535

== ENCOUNTER 2023-09-25 09:16 | Outpatient (AMB) | payer OTHER, SELFPAY ==
--- NOTE | 2023-09-25 09:35 | MHC.OFFWIV ---
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 Bilateral toe infection. Got new shoes which caused sores on feet. Went to [facility] 4 weeks ago, which may have contributed to infection. Went to urgent care and ER. Diagnosed with a fungal infection. Patient Tobacco Use Status: Former Tobacco user Quit Date: 25 years ago Allergies No Known Allergies Allergy (Verified 09/25/23 10:09) Medication List - Last Reconciled 09/25/23 by HENRIQUE FosterP- acetaminophen 650 mg (2 x 325 mg) PO Q6H PRN 30 days aspirin 325 mg PO BID 4 weeks celecoxib 200 mg PO BID 30 days multivitamin 1 tab PO DAILY omeprazole 20 mg PO DAILY ondansetron 4 mg PO Q6-8H PRN 7 days oxycodone 5 mg PO Q4H PRN 7 days Do you need a note to return to daycare/school/sports/work: No HPI HPI Comments History of Present Illness Details Here today with concerns redness and pain to bilat great toes, left more than right. Reports several months of ongoing issues with bilat toes. She was treated with 2 rounds of antibiotics from her primary care provider. Reports doxycycline and Keflex. She was also given topical mupirocin. Reports that she did not feel like her symptoms were getting any better and therefore she went to [facility]. She was then given a topical antifungal clotrimazole. Has been using this as directed. She followed up with her primary care provider after the emergency room visit which was a few weeks ago and was given topical antifungal nail Sinhala. Has been using this as directed. Despite all of this, the left great toe is red and painful to touch. Even mild pressure like the blankets cause pain. Reports that the skin splits and bleeds from time to time. Painful to wear shoes. Denies any fever, chills, history of gout. Her primary care did refer her to Podiatry however the appointment has not yet been scheduled. [facility] Medical History Anxiety Irritable bowel syndrome Osteoarthritis PONV (postoperative nausea and vomiting) Surgical History Hx of colonoscopy Hx of dilation and curettage Social History Household Members: Spouse Housing: House Are you a primary care coordination manager to a significant other at home: No Do you presently have visiting nurse or other home services: No Comment: COUNTS CORRECT Patient Tobacco Use Status: Former Tobacco user Tobacco use type: Cigarette service: No Current occupational status: employed Current occupation: Stenographer Review of Systems Const All systems reviewed & are unremarkable except as noted in HPI and below Physical Exam Vital Signs: Last Vital Signs Temp 97.0 F 09/25/23 09:43 Pulse 72 09/25/23 09:43 Resp 14 09/25/23 09:43 BP 128/67 09/25/23 09:43 Pulse Ox 97 09/25/23 09:43 Oxygen Delivery Method Room Air 09/25/23 09:43 BMI result Body Mass Index 29.6 Const Other: Onychomycosis bilat great toenails, paronychia left great toe, nails lifting bilat. No streaking of the skin. On the right great toe there appears to be the start of paronychia. The skin is not as red or warm as on the left side. Results AMB Rapid Strep AMB Rapid Strep Cancelled Last Edit by Echo Lazcano [facility] on 09/25/23 10:28 AMB Rapid Strep previously reported as Negative Echo Lazcano 09/25/23 10:28 CANCELLED error Results Reviewed Results Reviewed: Laboratory Last Values Strep Scn Rapid Clinic Cancelled 09/25/23 10:23 Assessment & Plan Assessment & Plan (1) Paronychia of toe of both feet: Code(s): L03.031 - Cellulitis of right toe; L03.032 - Cellulitis of left toe Plan: . This note is constructed using voice recognition software. While every effort has been made to ensure accuracy in medical equipment sales, still errors may have been included Sometimes, these errors may affect the content or meaning of the given sentence . Total time spent caring for the patient today was 30 minutes. This includes time spent before the visit reviewing the chart, time spent during the visit, and time spent after the visit on documentation Medications: New amoxicillin-pot clavulanate 875-125 mg 1 tab PO BID 14 tabs 0RF 7 days sulfamethoxazole-trimethoprim 800-160 mg (Bactrim DS) 1 tab PO Q12H 14 tabs 0RF Patient Instructions: Recommend stat referral to podiatry FU PCP if needed to expedite the referral take ab as directed If increasing redness, streaking of the skin or fever occur go to the ED STOP using topical AF cream; ok to use ecuadorean and cont to use topical AB cream Coding Level of Care Code Est Pt Level 4 (60348) Diagnoses Paronychia of toe of both feet L03.031; L03.032
[2023-09-25 09:43] VITALS: BP 128/67; PULSE 72; RESP 14; TEMP 36.1; O2SAT 97; BMI 29.6
== END 2023-09-25 10:20 | disposition home or self-care (01) ==
PROVIDERS: PCP Internal Medicine; Visit Provider Nurse Practitioner Family
DX: L03.031 Cellulitis of right toe (principal); L03.032 Cellulitis of left toe
CPT/HCPCS: 99214